=== PATIENT | female | born 1960 | race Caucasian/White ===

== ENCOUNTER → 2020-10-23 | Outpatient (CLI) | payer BC | END | disposition home or self-care (01) | LOC: LABWHC1 13:10 | PROVIDERS: ATTEND Internal Medicine Critical Care Medicine | DX: Z20.828 Contact with and (suspected) exposure to other viral communicable diseases (principal) | CPT/HCPCS: U0003; C9803 ==

== ENCOUNTER 2021-06-16 11:52 | Emergency (ER) | payer BC ==
--- NOTE | 2021-06-16 12:11 | ED ---
General Adult HPI - General Chief complaint: Chest Pain Stated complaint: chest tightness, SOB Time Seen by Provider: 06/16/21 12:10 Source: patient, RN notes reviewed, old records reviewed Mode of arrival: ambulatory Limitations: no limitations - History of Present Illness Initial comments: Patient is a 60-year-old male with past medical history remarkable for vertigo, hyperlipidemia, hypertension, thyroid disorder who presents emergency Department complaining of chest pain with radiation to the back. She states that she first noticed this last night. She describes it as a tightness sensation located in her anterior chest with radiation between her shoulder blades in the back. She states she intermittently has been expressing bouts of vertigo over the last 1-2 months and she is, seeing a neurologist for the vertigo. She states that she fe lt little lightheaded this morning, however has since resolved. She states that she has been having exertional dyspnea over the last 2 days as well as generalized fatigue that has been somewhat chronic. She denies any fevers, chills, cough. She has any abdominal pain, nausea, vomiting she has any leg swelling or history of DVTs, however there is a history of DVTs and her daughter. She is not currently on any hormonal therapy. She denies any hemoptysis. She is not on blood thinners. She denies any urinary complaints at this time. Currently denies any headache, blurry vision, numbness. She is no other acute complaints at this time. Denies fevers, chills, sick contacts. - Related Data Home Medications Medication Instructions Recorded Confirmed Ascorbic Acid [Vitamin C] 1,000 mg PO DAILY 06/16/21 06/16/21 Atorvastatin [Lipitor] 40 mg PO DAILY 06/16/21 06/16/21 Cholecalciferol [Vitamin D3 (25 25 mcg PO DAILY 06/16/21 06/16/21 Mcg = 1000 Iu)] Cyanocobalamin (Vitamin B-12) 1,000 mcg PO DAILY 06/16/21 06/16/21 [Vitamin B-12] FLUoxetine HCL [PROzac] 20 mg PO DAILY 06/16/21 06/16/21 Levothyroxine Sodium [Synthroid] 125 mcg PO DAILY 06/16/21 06/16/21 Losartan [Cozaar] 25 mg PO DAILY 06/16/21 06/16/21 Allergies Allergy/AdvReac Type Severity Reaction Status Date / Time metal AdvReac Rash/Hives Uncoded 06/16/21 13:39 Review of Systems ROS Statement: Those systems with pertinent positive or pertinent negative responses have been documented in the HPI. Review of Systems: CONST: Denies fever EYES: Denies blurry vision ENT: Denies nasal congestion C/V: Endorses chest pain RESP: Endorses shortness breath GI: Denies abdominal pain : Denies dysuria SKIN: Denies rash. MSK: Denies joint pain. NEURO: Denies headache ROS Other: All systems not noted in ROS Statement are negative. Past Medical History Past Medical History: Hyperlipidemia, Hypertension, Thyroid Disorder Additional Past Medical History / Comment(s): being treated for vertigo, daughter states pt is being worked up for memory loss, confusion as well. History of Any Multi-Drug Resistant Organisms: None Reported Past Surgical History: Section, Hysterectomy Past Psychological History: No Psychological Hx Reported Smoking Status: Never smoker Past Alcohol Use History: Occasional Past Drug Use History: None Reported General Exam - General Exam Comments Initial Comments: General: Appears in mild distress secondary to pain and anxiety. She is mildly tachycardic. HEAD: Normal with no signs of head trauma. EYES: PERRLA, EOMI, conjunctiva normal, no discharge. Pupils are 3 mm and equal bilaterally. ENT: Hearing grossly intact, normal oropharynx. RESPIRATORY: Clear breath sounds bilaterally. No wheezes, rales, or rhonchi. C/V: She is tachycardic with a regular rhythm. S1 and S2 auscultated. No peripheral edema. Peripheral pulses are 2+ and intact throughout all 4 extremities and symmetrical. ABD: Abd is soft, nontender, nondistended EXT: Normal range of motion, no obvious deformity SKIN: No rashes or lesions observed on exposed skin. NEURO: Alert and oriented 4. Cranial nerves II through XII are intact. No focal sensory strength deficits. Cerebellar function is intact as by normal finger to nose testing. Limitations: no limitations Course Vital Signs 06/16/21 06/16/21 06/16/21 11:54 12:00 13:10 Temperature 97.8 F Pulse Rate 106 H 106 H Pulse Rate [ 115 H [employer] ] Respiratory 19 18 Rate Blood Pressure 160/92 181/95 O2 Sat by Pulse 97 95 Oximetry 06/16/21 06/16/21 14:20 15:08 Temperature 98.2 F Pulse Rate 92 96 Pulse Rate [ [employer]er ] Respiratory 16 18 Rate Blood Pressure 158/86 139/80 O2 Sat by Pulse 98 Oximetry Medical Decision Making - Medical Decision Making Based on the patient's mentation and physical exam, and cannot rule out the possibility of acute cardiac etiology for her current symptoms. With the patient describing chest pain radiating to her back, cannot rule out possibility of aortic dissection either. Patient does not perc out. Well's scores low, however we will obtain CT imaging for the dissection which will also manage for the possible develop pulmonary embolism. We also obtained a cardiac workup consisting of troponins, EKG, chest x-ray. COVID 19 swab will be obtained despite her being vaccinated. Aspirin will be held at this time until we obtain dissection imaging. Patient states she is claustrophobic and she will be given Ativan prior to going to CT imaging. She'll be connected to continuous cardiac monitoring while she is here in the department. Patient was in agreement this plan. Patient's EKG is remarkable for sinus tachycardia but no signs of acute ischemia.Patient's lavatory studies are remarkable for a negative d-dimer as well as a negative troponin. Remainder of her labs are unremarkable except for very slightly elevated AST and ALT of 58. COVID-19 swab is negative. Remainder of her labs are unremarkable. Patient's chest and abdomen and pelvis CT to rule out PE and aortic dissection are negative. On reevaluation come patient's chest pain as well as surgeon back pain resolved. Her heart rate has improved as well as a inform her of her negative workup. She states she believes it may have been contributed to anxiety and was concerned about her heart. Patient's heart scores low I do feel safe discharging her home at this time with close follow- up. She was in agreement with this plan. I instructed the patient to follow up with their PCP in the next 3 days. . I explained that the patient should return to the emergency department if they experience any worsening symptoms. Strict return precautions were discussed with the patient. The patient expressed understanding of these instructions. I answered all questions that the patient had. The patient was discharged home in good condition with their prescriptions and follow up information. - Lab Data Result diagrams: 06/16/21 12:40 06/16/21 12:40 Lab Results 06/16/21 06/16/21 06/16/21 Range/Units 12:40 12:40 12:40 WBC 5.8 (3.8-10.6) k/uL RBC 4.95 (3.80-5.40) m/uL Hgb 14.9 (11.4-16.0) gm/dL Hct 45.1 (34.0-46.0) % MCV 91.1 (80.0-100.0) fL MCH 30.0 (25.0-35.0) pg MCHC 33.0 (31.0-37.0) g/dL RDW 14.1 (11.5-15.5) % Plt Count 162 (150-450) k/uL MPV 8.0 Neutrophils % 62 % Lymphocytes % 26 % Monocytes % 7 % Eosinophils % 2 % Basophils % 1 % Neutrophils # 3.6 (1.3-7.7) k/uL Lymphocytes # 1.5 (1.0-4.8) k/uL Monocytes # 0.4 (0-1.0) k/uL Eosinophils # 0.1 (0-0.7) k/uL Basophils # 0.0 (0-0.2) k/uL PT 10.4 (9.0-12.0) sec INR 1.0 (<1.2) APTT 21.0 L (22.0-30.0) sec D-Dimer 0.35 (<0.60) mg/L FEU Sodium 139 (137-145) mmol/L Potassium 4.2 (3.5-5.1) mmol/L Chloride 107 (98-107) mmol/L Carbon Dioxide 23 (22-30) mmol/L Anion Gap 9 mmol/L BUN 14 (7-17) mg/dL Creatinine 0.68 (0.52-1.04) mg/dL Est GFR (CKD-EPI)AfAm >90 (>60 ml/min/1.73 sqM) Est GFR (CKD-EPI)NonAf >90 (>60 ml/min/1.73 sqM) Glucose 164 H (74-99) mg/dL Calcium 9.9 (8.4-10.2) mg/dL Magnesium 1.8 (1.6-2.3) mg/dL Total Bilirubin 1.8 H (0.2-1.3) mg/dL AST 50 H (14-36) U/L ALT 50 H (4-34) U/L Alkaline Phosphatase 85 (38-126) U/L Troponin I (0.000-0.034) ng/mL Total Protein 7.4 (6.3-8.2) g/dL Albumin 4.5 (3.5-5.0) g/dL Coronavirus (PCR) (Not Detectd) 06/16/21 06/16/21 Range/Units 12:40 12:40 WBC (3.8-10.6) k/uL RBC (3.80-5.40) m/uL Hgb (11.4-16.0) gm/dL Hct (34.0-46.0) % MCV (80.0-100.0) fL MCH (25.0-35.0) pg MCHC (31.0-37.0) g/dL RDW (11.5-15.5) % Plt Count (150-450) k/uL MPV Neutrophils % % Lymphocytes % % Monocytes % % Eosinophils % % Basophils % % Neutrophils # (1.3-7.7) k/uL Lymphocytes # (1.0-4.8) k/uL Monocytes # (0-1.0) k/uL Eosinophils # (0-0.7) k/uL Basophils # (0-0.2) k/uL PT (9.0-12.0) sec INR (<1.2) APTT (22.0-30.0) sec D-Dimer (<0.60) mg/L FEU Sodium (137-145) mmol/L Potassium (3.5-5.1) mmol/L Chloride (98-107) mmol/L Carbon Dioxide (22-30) mmol/L Anion Gap mmol/L BUN (7-17) mg/dL Creatinine (0.52-1.04) mg/dL Est GFR (CKD-EPI)AfAm (>60 ml/min/1.73 sqM) Est GFR (CKD-EPI)NonAf (>60 ml/min/1.73 sqM) Glucose (74-99) mg/dL Calcium (8.4-10.2) mg/dL Magnesium (1.6-2.3) mg/dL Total Bilirubin (0.2-1.3) mg/dL AST (14-36) U/L ALT (4-34) U/L Alkaline Phosphatase (38-126) U/L Troponin I <0.012 (0.000-0.034) ng/mL Total Protein (6.3-8.2) g/dL Albumin (3.5-5.0) g/dL Coronavirus (PCR) Not Detected (Not Detectd) - EKG Data -: EKG Interpreted by Me EKG Comments: 12-lead Electrocardiogram Interpretation Note EKG was reviewed and interpreted by myself. 12-lead ECG performed at 1208 is interpreted by me as revealing sinus tachycardia at a rate of 109 beats per minute. [place] is normal. MA interval is 152 ms, QRS duration is 80 ms, QTc is 460 ms.. Patient does have deep S waves in lead 1, as well as Q waves present in lead 3. T waves isoelectric in lead 3.. R wave progression across the preco rdium was satisfactory. By my interpretation this EKG is non-diagnostic for acute ischemia. Disposition Clinical Impression: Chest pain of unknown etiology, Anxiety Disposition: HOME SELF-CARE Condition: Good Instructions (If sedation given, give patient instructions): Chest Pain (ED) Is patient prescribed a controlled substance at d/c from ED?: No Referrals: Zack Velez MD [Primary Care Provider] - 1-2 days
[2021-06-16] MEDS ORDERED: LORazepam 2 MG/ML INJ IV STA ×2 (12:24→13:33)
[2021-06-16 13:03] LABS: Basophils % (A) 1 %; Eosinophils # (A) 0.1 k/uL (0-0.7); Eosinophils % (A) 2 %; HCT 45.1 % (34.0-46.0); HGB 14.9 gm/dL (11.4-16.0); Lymphocytes # (A) 1.5 k/uL (1.0-4.8); Lymphocytes % (A) 26 %; MCV 91.1 fL (80.0-100.0); Monocytes # (A) 0.4 k/uL (0-1.0); Monocytes % (A) 7 %; Neutrophils # (A) 3.6 k/uL (1.3-7.7); Neutrophils % (A) 62 %; Platelet Count 162 k/uL (150-450); RBC 4.95 m/uL (3.80-5.40); RDW 14.1 % (11.5-15.5); WBC 5.8 k/uL (3.8-10.6)
[2021-06-16 13:17] LABS: ALT 50 U/L (4-34); AST 50 U/L (14-36); African American GFR (CKD) >90 (>60 ml/min/1.73 sqM); Albumin 4.5 g/dL (3.5-5.0); Alkaline Phosphatase 85 U/L (38-126); Anion Gap 9 mmol/L; Blood Urea Nitrogen 14 mg/dL (7-17); Calcium 9.9 mg/dL (8.4-10.2); Carbon Dioxide 23 mmol/L (22-30); Chloride 107 mmol/L (98-107); Glucose 164 mg/dL (74-99); Magnesium 1.8 mg/dL (1.6-2.3); Non-African American GFR(CKD) >90 (>60 ml/min/1.73 sqM); Sodium 139 mmol/L (137-145); Total Bilirubin 1.8 mg/dL (0.2-1.3); Total Protein 7.4 g/dL (6.3-8.2)
[2021-06-16 13:21] LABS: Potassium 4.2 mmol/L (3.5-5.1)
[2021-06-16 13:26] VITALS: RESP 18
[2021-06-16] MEDS ORDERED: ONDANSETRON 4 MG/2 ML VIAL IVP STA (13:33)
[2021-06-16 13:41] LABS: Prothrombin Time 10.4 sec (9.0-12.0)
--- NOTE | 2021-06-16 14:21 | CT ---
EXAMINATION TYPE: CT angio thor/abd pel aorta DATE OF EXAM: 06/16/2021 COMPARISON: None HISTORY: Chest rightness, SOB CT DLP: 1005.1 mGycm CONTRAST: CTA thoracic and abdominal aorta with 3-D reconstruction is performed and with IV Contrast, patient i njected with 100 mL of Isovue 370. Contrast CTA of the thoracic and abdominal aorta was performed from the lung apex through the base of the pelvis. 3-D reconstruction imaging obtained at a separate workstation. CT Chest: THORACIC AORTA: There is no evidence for aneurysm. No dissection or mediastinal hematoma. Mild ath eromatous changes are seen. LUNGS: The lungs are clear and free of infiltrate or atelectasis. No pulmonary nodule or mass is det ected. No pleural effusion or CT evidence of interstitial lung disease. MEDIASTINUM: The heart is not enlarged. No evidence for mediastinal mass or adenopathy. HILAR STRUCTURES: No evidence for mass. No hilar adenopathy is appreciated. OTHER: No significant abnormality. CONTRAST CT ABDOMEN AND PELVIS ABDOMINAL AORTA: No evidence for abdominal aortic aneurysm. No dissection. Iliac vessels are symmet joann and patent. LIVER/GB- No significant abnormality is seen. PANCREAS- No significant abnormality is seen. SPLEEN- No significant abnormality is seen. ADRENALS- No significant abnormality is seen. KIDNEYS/BLADDER- No significant abnormality is seen. BOWEL- No Significant abnormality GENITAL ORGANS: No gross abnormality seen. LYMPH NODES- No greater than 1cm abdominal or pelvic lymph nodes areappreciated. OSSEOUS STRUCTURES- No significant abnormality is seen. OTHER- No significant abnormality is seen. IMPRESSION- Normal appearing aorta.
[2021-06-16 15:09] VITALS: BP 139/80; PULSE 96; TEMP 98.2
== END 2021-06-16 15:26 | disposition home or self-care (01) ==
LOC: EC 11:52
DX: R07.89 Other chest pain (principal); F41.9 Anxiety disorder, unspecified; E78.5 Hyperlipidemia, unspecified; I10 Essential (primary) hypertension; E07.9 Disorder of thyroid, unspecified; Z79.899 Other long term (current) drug therapy
CPT/HCPCS: 99285; 96374; 96375; 96376; 36415; 85379; 80053; 83735; 84484; 85025; 85610; 85730; 87635; 71275; 74174; J2060; J2405; Q9967; 93005